=== PATIENT | male | born 1985 | race Caucasian/White ===

== ENCOUNTER 2017-03-20 17:09 | Emergency (ER) | payer BC ==
[~2017-03-20] VITALS: Ht 172.7 cm; Wt 66.6 kg
[2017-03-20 17:15] VITALS: BP 117/74; PULSE 90; RESP 20; TEMP 98.1; O2SAT 98
[2017-03-20 17:40] VITALS: BP 121/68; PULSE 71; RESP 16; O2SAT 98
[2017-03-20] MEDS ORDERED: ASPIRIN 81 MG CHEW TAB PO ONE (17:45)
[2017-03-20] MEDS ORDERED: SODIUM CHLORIDE 0.9% FLUSH 10 ML FLUSH IVF PRN (17:45)
--- NOTE | 2017-03-20 17:45 | PD ---
HPI . Chest pain Chief Complaint: Chest Pain Time Seen by Provider: 17:30 Travel History International Travel<30 days: No Contact w/Intl Traveler<30days: No Traveled to known affect area: No History of Present Illness HPI This patient presents with a chief complaint of right-sided chest pain. Onset was about 2 days ago. He reports a "low level constant" pain which "spikes" with deep respirations. Maximal pain has been 7/10. Pain is sharp. He states that he had had an apparent panic attack the day before the onset of his chest pain. He states that he vomited violently and thinks that maybe he pulled something in his chest with the emesis. The patient states that he has started having panic attacks over the last couple months. He states that he will become short of breath and become agitated and unable to be still. He will have occasional emesis. He states that the symptoms have been so severe and scary that he has started making deals with God. He has worried whether or not he'll ever be able to see his parents again. [facility] Past Medical History Medical History: Denies Significant Hx Influenza Vaccination: No Social History Alcohol Use: Yes ([facility]) Tobacco Use: Yes (ON WEEKENDS) Substance Use: No Allergies-Medications (Allergen,Severity, Reaction): Coded Allergies: Ceclor (Verified Allergy, Unknown, 03/20/17) Reported Meds & Prescriptions Reported Meds & Active Scripts Active No Active Prescriptions or Reported Medications Review of Systems Except as stated in HPI: all other systems reviewed are Neg General / Constitutional: No: Fever, Chills Cardiovascular: Positive: Chest Pain or Discomfort Respiratory: Positive: Shortness of Breath (no shortness of breath currently) Gastrointestinal: Positive: Nausea, Vomiting Psychiatric: Positive: Anxiety Physical Exam Narrative GENERAL: Healthy-appearing young man who is currently in no acute distress. SKIN: Warm and dry. He has a soft tissue mass on the right lateral chest wall. It is soft and freely mobile. HEAD: Atraumatic. Normocephalic. EYES: Pupils equal and round. Extraocular movements intact. ENT: No nasal bleeding or discharge. Mucous membranes pink and moist. NECK: Trachea midline. Neck is supple. CARDIOVASCULAR: Regular rate and rhythm. Heart sounds are normal. RESPIRATORY: No accessory muscle use. Lungs are clear with full air movement throughout. No chest wall tenderness. GASTROINTESTINAL: Abdomen soft, non-tender, nondistended. MUSCULOSKELETAL: No obvious deformities. No edema. NEUROLOGICAL: Awake and alert. No obvious cranial nerve deficits. Motor grossly within normal limits. Normal speech. PSYCHIATRIC: Appropriate mood and affect; insight and judgment normal. Data Data Last Documented VS Vital Signs Date Time Temp Pulse Resp B/P Pulse Ox O2 Delivery O2 Flow Rate FiO2 03/20/17 17:40 71 16 121/68 98 03/20/17 17:15 98.1 Orders Basic Metabolic Panel (Bmp) (03/20/17 17:37) Ckmb (Isoenzyme) Profile (03/20/17 17:37) Complete Blood Count With Diff (03/20/17 17:37) D-Dimer (03/20/17 17:37) Magnesium (Mg) (03/20/17 17:37) Prothrombin Time / Inr (Pt) (03/20/17 17:37) Act Partial Throm Time (Ptt) (03/20/17 17:37) Troponin I (03/20/17 17:37) Chest, Single Ap (03/20/17 17:37) Ecg Monitoring (03/20/17 17:37) Iv Access Insert/Monitor (03/20/17 17:37) Oximetry (03/20/17 17:37) Aspirin Chew (Aspirin Chew) (03/20/17 17:45) Sodium Chloride 0.9% Flush (Ns Flush) (03/20/17 17:45) Labs Laboratory Tests Test 03/20/17 17:40 White Blood Count 6.2 TH/MM3 Red Blood Count 5.11 MIL/MM3 Hemoglobin 14.6 GM/DL Hematocrit 43.7 % Mean Corpuscular Volume 85.4 FL Mean Corpuscular Hemoglobin 28.5 PG Mean Corpuscular Hemoglobin 33.4 % Concent Red Cell Distribution Width 12.4 % Platelet Count 286 TH/MM3 Mean Platelet Volume 6.7 FL Neutrophils (%) (Auto) 63.7 % Lymphocytes (%) (Auto) 24.4 % Monocytes (%) (Auto) 8.4 % Eosinophils (%) (Auto) 2.3 % Basophils (%) (Auto) 1.2 % Neutrophils # (Auto) 4.0 TH/MM3 Lymphocytes # (Auto) 1.5 TH/MM3 Monocytes # (Auto) 0.5 TH/MM3 Eosinophils # (Auto) 0.1 TH/MM3 Basophils # (Auto) 0.1 TH/MM3 CBC Comment DIFF FINAL Differential Comment Prothrombin Time 11.2 SEC Prothromb Time International 1.0 RATIO Ratio Activated Partial 25.1 SEC Thromboplast Time D-Dimer Quantitative (PE/DVT) LESS THAN 0.19 MG/L FEU Sodium Level 142 MEQ/L Potassium Level 4.1 MEQ/L Chloride Level 103 MEQ/L Carbon Dioxide Level 32.9 MEQ/L Anion Gap 6 MEQ/L Blood Urea Nitrogen 19 MG/DL Creatinine 1.10 MG/DL Estimat Glomerular Filtration 78 ML/MIN Rate Random Glucose 98 MG/DL Calcium Level 9.0 MG/DL Magnesium Level 2.2 MG/DL Total Creatine Kinase 77 U/L Troponin I LESS THAN 0.02 NG/ML MDM Medical Decision Making Medical Screen Exam Complete: Yes Emergency Medical Condition: Yes Interpretation(s) EKG shows a normal sinus rhythm with no ST segment elevation or depression. Differential Diagnosis Differential diagnosis of chest pain includes but is not limited to musculoskeletal pain, pulmonary embolism, acute coronary syndrome, pneumonia, pleurisy Narrative Course This patient presents for evaluation of chest pain. He states that he doesn't need anything for pain. He just wants to make sure that he does not have anything serious such as a heart attack, PE, pneumonia, collapsed lung. Last Impressions Chest X-Ray 03/20/17 1862 Signed Impressions: Service Date/Time: Wednesday, March 20, 2017 18:04 - CONCLUSION: No acute disease. Miguel Watters MD Chest x-ray was independently viewed by me. CBC & BMP Diagram 03/20/17 17:40 Cardiac enzymes are negative. D-dimer is less than 0.19. No etiology for his chest pain has been discovered. The history, exam, diagnostic testing, and current condition do not suggest any significant pathology to warrant further testing, continued ED treatment, admission, or surgical evaluation at this point. The patient's condition is stable and appropriate for discharge. Diagnosis Primary Impression: Chest pain Qualified Code: R07.9 - Chest pain, unspecified type Patient Instructions: Chest Pain (DC), General Instructions, Panic Attack (ED) Scripts No Active Prescriptions or Reported Meds Disposition: DISCHARGE HOME Condition: Stable Cee Camarena MD Mar 20, 2017 17:45
[2017-03-20 18:04] LABS: BASOPHIL # 0.1 TH/MM3 (0-0.2); BASOPHIL % 1.2 % (0.0-2.0); EOSINOPHIL # 0.1 TH/MM3 (0-0.4); EOSINOPHIL % 2.3 % (0.0-4.0); HEMATOCRIT 43.7 % (39.0-51.0); HEMO FLAGS DIFF FINAL; LYMPH % 24.4 % (9.0-44.0); LYMPHOCYTE # 1.5 TH/MM3 (1.0-4.8); MEAN CELL VOLUME 85.4 FL (80.0-100.0); MEAN CORPUSCULAR HEMOGLOBIN 28.5 PG (27.0-34.0); MEAN CORPUSCULAR HGB CONC 33.4 % (32.0-36.0); MONO % 8.4 % (0.0-8.0); NEUT % 63.7 % (16.0-70.0); PLATELET COUNT 286 TH/MM3 (150-450); RED BLOOD COUNT 5.11 MIL/MM3 (4.50-5.90); RED CELL DISTRIBUTION WIDTH 12.4 % (11.6-17.2); WHITE BLOOD COUNT 6.2 TH/MM3 (4.0-11.0)
--- NOTE | 2017-03-20 18:22 | RADRPT ---
EXAM DATE/TIME: 03/20/2017 18:04 [facility] COMPARISON: No previous studies available for comparison. INDICATIONS : Shortness of breath and upper right chest pain for two days. MEDICAL HISTORY : None. SURGICAL HISTORY : None. ENCOUNTER: Initial ACUITY: 2 days PAIN SCORE: 4/10 LOCATION: Bilateral chest FINDINGS: A single view of the chest demonstrates the lungs to be symmetrically aerated without evidence of mas s, infiltrate or effusion. The cardiomediastinal contours are unremarkable. Osseous structures are intact. CONCLUSION: No acute disease. Miguel Watters MD on March 20, 2017 at 18:19 Board Certified Radiologist. This report was verified electronically.
[2017-03-20 18:26] LABS: CHLORIDE 103 MEQ/L (98-107); POTASSIUM 4.1 MEQ/L (3.5-5.1); SODIUM (NA) 142 MEQ/L (136-145)
[2017-03-20 18:29] LABS: ANION GAP 6 MEQ/L (5-15); BICARBONATE 32.9 MEQ/L (21.0-32.0); BLOOD UREA NITROGEN 19 MG/DL (7-18); MAGNESIUM 2.2 MG/DL (1.5-2.5)
[2017-03-20 18:32] LABS: GLOMERULAR FILTRATION RATE 78 ML/MIN (>89)
[2017-03-20 18:39] LABS: CREATINE KINASE 77 U/L (39-308)
[2017-03-20 18:47] LABS: APTT (PATIENT) 25.1 SEC (24.3-30.1); PROTHROMBIN TIME - PATIENT 11.2 SEC (9.8-11.6)
[2017-03-20 19:01] VITALS: BP 117/61
--- NOTE | 2017-03-21 13:21 | EKG ---
Date Performed: 03/20/2017 Time Performed: 17:26:42 PTAGE: 31 years EKG: Sinus rhythm NORMAL ECG NO PREVIOUS TRACING DOCTOR: Sharon Solorzano Interpretating Date/Time 03/21/2017 13:18:24
== END 2017-03-20 19:10 | disposition home or self-care (01) ==
LOC: EDSEX → PHED 17:09
DX: R07.9 Chest pain, unspecified (principal); Z72.0 Tobacco use; Z86.59 Personal history of other mental and behavioral disorders
CPT/HCPCS: 71010; 80048; 82550; 83735; 84484; 85025; 85379; 85610; 85730; 93005; 99284

== ENCOUNTER 2017-05-21 00:25 | Emergency (ER) | payer BC ==
[~2017-05-21] VITALS: Ht 172.7 cm; Wt 63.9 kg
[2017-05-21 00:31] VITALS: BP 126/71; PULSE 78; RESP 18; TEMP 98.6; O2SAT 98
--- NOTE | 2017-05-21 02:13 | PD ---
HPI Chief Complaint: Musculoskeletal Complaint Time Seen by Provider: 02:00 Travel History International Travel<30 days: No Contact w/Intl Traveler<30days: No Traveled to known affect area: No History of Present Illness HPI The patient is a 31-year-old male that complains of left foot pain towards the heel. He was recently and [place] and he walked about 140 miles an 8 days using poor shoes with flat soles. He denies any direct injury. [facility] Past Medical History Medical History: Denies Significant Hx Tetanus Vaccination: > 5 Years Influenza Vaccination: No Social History Alcohol Use: Yes ([facility]) Tobacco Use: No ([facility] FEBRUARY 2017) Substance Use: No Allergies-Medications (Allergen,Severity, Reaction): Coded Allergies: cefaclor (Unverified Allergy, Unknown, 05/21/17) Reported Meds & Prescriptions Reported Meds & Active Scripts Active No Active Prescriptions or Reported Medications Review of Systems Except as stated in HPI: all other systems reviewed are Neg Physical Exam Narrative GENERAL: The patient is alert, oriented 3 in slight apparent distress with his left foot/heel pain. His vital signs show normal. SKIN: Focused skin assessment warm/dry. HEAD: Atraumatic. Normocephalic. EYES: Pupils equal and round. No scleral icterus. No injection or drainage. ENT: No nasal bleeding or discharge. Mucous membranes pink and moist. NECK: Trachea midline. No JVD. CARDIOVASCULAR: Regular rate and rhythm. No murmur appreciated. RESPIRATORY: No accessory muscle use. Clear to auscultation. Breath sounds equal bilaterally. GASTROINTESTINAL: Abdomen soft, non-tender, nondistended. Hepatic and splenic margins not palpable. MUSCULOSKELETAL: No obvious deformities. No clubbing. No cyanosis. No edema. There is tenderness diffusely about the heel to direct palpation. No erythema is seen. No bony deformity is noted. NEUROLOGICAL: Awake and alert. No obvious cranial nerve deficits. Motor grossly within normal limits. Normal speech. PSYCHIATRIC: Appropriate mood and affect; insight and judgment normal. Data Data Last Documented VS Vital Signs Date Time Temp Pulse Resp B/P (MAP) Pulse Ox O2 Delivery O2 Flow Rate FiO2 05/21/17 00:31 98.6 78 18 126/71 (89) 98 Orders Orders Foot, Complete ([id number]) (05/21/17 02:06) [facility] Medical Decision Making Medical Screen Exam Complete: Yes Emergency Medical Condition: Yes Medical Record Reviewed: Yes Interpretation(s) X-rays show mild sclerosis and evolving the posterior inferior aspect of the calcaneus. This could represent a calcaneal stress fracture. Differential Diagnosis Stress fracture, tendinitis, fasciitis, bursitis Narrative Course The patient's sclerosis and is exactly where the patient's tenderness is in the history is that of an early stress fracture. Plan: The patient is given ibuprofen and is told to stay off of his feet as best as he can, do not apply pressure or do anything that causes pain. He can follow-up with a asphalt heater operator. Diagnosis Primary Impression: Stress fracture of left calcaneus Additional Instructions: As we discussed, get the weight off of her foot, anything that hurts your heel you should not be doing and follow-up with a asphalt heater operator. Med/Other Pt SpecificInfo: Prescription(s) given Scripts Ibuprofen (Ibuprofen) 800 Mg Tab 800 MG PO TID for 33 Days, TAB 0 Refills Prov: Francisco Myers MD 05/21/17 Disposition: 01 DISCHARGE HOME Condition: Stable Francisco Myers MD May 21, 2017 02:13
--- NOTE | 2017-05-21 02:38 | RADRPT ---
EXAM DATE/TIME: 05/21/2017 02:15 [facility] COMPARISON: No previous studies available for comparison. INDICATIONS : Lateral posterior left foot pain. MEDICAL HISTORY : None. SURGICAL HISTORY : None. ENCOUNTER: Initial ACUITY: 1 week PAIN SCORE: 5/10 LOCATION: Left lateral posterior foot FINDINGS: 3 views of the left foot demonstrate increased density in the posterior inferior aspect of the calcan eus. Lisfranc joint is intact. No dislocation is identified. There is normal mineralization. No signi ficant arthropathy is present. No soft tissue abnormality or radiopaque foreign body is present. CONCLUSION: Mild sclerosis along the posterior inferior aspect of the calcaneus. This could represent a calcaneal stress fracture. Suggest correlation for pain in this location. Hugh Beckham MD on May 21, 2017 at 2:33 Board Certified Radiologist. This report was verified electronically.
[2017-05-21] MEDS ORDERED: IBUP800T23 PO (03:06)
== END 2017-05-21 03:20 | disposition home or self-care (01) ==
LOC: PHED 00:25
DX: M84.375A Stress fracture, left foot, initial encounter for fracture (principal); Z87.891 Personal history of nicotine dependence; Y93.01 Activity, walking, marching and hiking
CPT/HCPCS: 73630; 99283